=== PATIENT | female | born 1940 | race Caucasian/White ===

== ENCOUNTER 2016-11-23 10:00 | Inpatient (IN) | payer MEDICARE, OTHER ==
[~2016-11-23] VITALS: Ht 144.8 cm; Wt 52.8 kg
[2016-11-23 10:16] VITALS: BP 112/74
[2016-11-23] MEDS ORDERED: METF500T4 PO (10:33)
[2016-11-23] MEDS ORDERED: MULT-717 PO (10:35)
[2016-11-23] MEDS ORDERED: ROSU10TA PO (10:35)
[2016-11-23] MEDS ORDERED: OMEP-110 PO (10:35)
[2016-11-23] MEDS ORDERED: HYDR25TA6 PO (10:35)
[2016-11-23] MEDS ORDERED: CHOL10002 PO (10:35)
[2016-11-24] MEDS ORDERED: THROMBIN 20,000 UNIT VIAL TP ONE (07:53)
[2016-11-24] MEDS ORDERED: BACITRACIN 50,000 UNIT ONE (07:54)
[2016-11-24] MEDS ORDERED: BUPIVACAINE/PF-EPI 0.5% 1:200K ONE (07:54)
[2016-11-24] MEDS ORDERED: VANCOMYCIN 1,000 MG ONE (07:54)
[2016-11-24] MEDS ORDERED: VANCOMYCIN PMX 1GM/200ML 200 ML IV ONE (08:30)
[2016-11-24] MEDS ORDERED: MUPI22OI2 NAS (08:57)
[2016-11-24] MEDS ORDERED: LACTATED RINGERS 1,000 ML IV SCH ×2 (09:00→09:23)
[2016-11-24] MEDS ORDERED: LIDOCAINE 1%, 2ML SQ PRN (09:00)
[2016-11-24] MEDS ORDERED: LIDOCAINE 1%, 2ML ONE (09:06)
[2016-11-24] MEDS ORDERED: ROCURONIUM 10 MG/ML ONE (12:08)
[2016-11-24] MEDS ORDERED: PROPOFOL 10 MG/ML, 50ML ONE (12:08)
[2016-11-24] MEDS ORDERED: ONDANSETRON 2MG/ML, 2ML ONE ×2 (12:08→18:34)
[2016-11-24] MEDS ORDERED: CEFAZOLIN 1,000 MG ONE (12:08)
[2016-11-24] MEDS ORDERED: SUCCINYLCHOLINE 20 MG/ML, 10ML ONE (12:08)
[2016-11-24] MEDS ORDERED: FENTANYL PF 250 MCG/5ML ONE (12:23)
[2016-11-24] MEDS ORDERED: TRANEXAMIC ACID 100 MG/ML, 10ML ONE (12:55)
[2016-11-24] MEDS ORDERED: VANCOMYCIN 500 MG ONE (16:47)
[2016-11-24] MEDS ORDERED: HYDROmorphone 1 MG/ML, 1ML ONE (17:21)
[2016-11-24] MEDS ORDERED: FENTANYL PF 100 MCG/2ML ONE (18:20)
[2016-11-24] MEDS ORDERED: KETOROLAC 30 MG/1 ML ONE (18:20)
[2016-11-24] MEDS ORDERED: OXYcodone 5 MG/5 ML ORAL.SOL UDC ONE (18:21)
[2016-11-24] MEDS ORDERED: EPHEDRINE 50 MG/ML, 1ML IVPush PRN (18:30)
[2016-11-24] MEDS ORDERED: LABETALOL 5MG/ML, 20ML IV PRN ×2 (18:30→20:30)
[2016-11-24] MEDS ORDERED: ONDANSETRON 2MG/ML, 2ML IVPush PRN (18:30)
[2016-11-24] MEDS ORDERED: METOCLOPRAMIDE 5 MG/ML, 2ML IV PRN (18:30)
[2016-11-24] MEDS ORDERED: KETOROLAC 30 MG/1 ML IV PRN ×2 (18:30)
[2016-11-24] MEDS ORDERED: MEPERIDINE/PF 25MG/0.5ML IVPush PRN (18:30)
[2016-11-24] MEDS ORDERED: MIDAZOLAM 1 MG/ML, 2ML IV PRN (18:30)
[2016-11-24] MEDS ORDERED: hydrALAzine 20 MG/ML, 1ML IV PRN (18:30)
[2016-11-24] MEDS ORDERED: OXYcodone 5 MG/5 ML ORAL.SOL UDC PO PRN (18:30)
[2016-11-24] MEDS ORDERED: PROMETHAZINE 25 MG/ML, 1ML IV PRN (18:30)
[2016-11-24] MEDS ORDERED: ACETAMINOPHEN 325 MG TABLET PO PRN ×2 (18:30→20:30)
[2016-11-24] MEDS ORDERED: ALBUTEROL SULFATE 2.5 MG/3 ML NPPB PRN (18:30)
[2016-11-24] MEDS ORDERED: HYDROmorphone 1 MG/ML, 1ML IV PRN (18:30)
[2016-11-24] MEDS: FENTANYL PF 100 MCG/2ML IV PRN ×2 (18:39→19:04)
[2016-11-24 19:44] VITALS: BP 119/70
[2016-11-24] MEDS ORDERED: PHARMACY MAY ADJ FOR RENAL FX MC PRN (20:00)
[2016-11-24] MEDS ORDERED: KETOROLAC 30 MG/1 ML IV ONE (20:30)
[2016-11-24] MEDS ORDERED: ACETAMINOPHEN 650 MG SUPP PR PRN (20:30)
[2016-11-24] MEDS ORDERED: MAGNESIUM HYDROXIDE 8%, 30ML UDC PO PRN (20:30)
[2016-11-24] MEDS ORDERED: DIAZEPAM 5 MG TABLET PO PRN (20:30)
[2016-11-24] MEDS ORDERED: morphine SULFATE 10 MG/ML, 1ML IV PRN (20:30)
[2016-11-24] MEDS ORDERED: PROMETHAZINE 25 MG/ML, 1ML IM PRN (20:30)
[2016-11-24] MEDS ORDERED: OXYcodone IR 5MG TABLET PO PRN (20:30)
[2016-11-24] MEDS ORDERED: BISACODYL 10 MG SUPP PR PRN (20:30)
[2016-11-24] MEDS ORDERED: DIAZEPAM 5 MG/ML, 2ML IV PRN (20:30)
[2016-11-24] MEDS ORDERED: ZOLPIDEM 5MG TABLET PO PRN (21:00)
[2016-11-24] MEDS: ONDANSETRON 2MG/ML, 2ML IV PRN (21:36)
[2016-11-24] MEDS: NS + 20MEQ KCL 1,000 ML IV SCH (22:44)
[2016-11-24] MEDS: INSULIN REGULAR 100 UNITS/ML, 3ML VIAL SQ-INSULIN SCH (22:44)
[2016-11-24] MEDS: metFORMIN 500 MG TABLET PO SCH (22:45)
[2016-11-24 23:05] VITALS: BP 120/60
[2016-11-25] MEDS: CEFAZOLIN PMX 1GM/50ML 50 ML IVPB SCH ×2 (00:44→09:13)
[2016-11-25 03:09] VITALS: BP 115/80
[2016-11-25] MEDS ORDERED: HEPARIN 5,000 UNITS/ML, 1ML SQ SCH (06:00)
[2016-11-25] MEDS: INSULIN REGULAR 100 UNITS/ML, 3ML VIAL SQ-INSULIN SCH ×4 (06:36→20:28)
[2016-11-25 08:09] VITALS: BP 116/67
[2016-11-25] MEDS ORDERED: CHOLECALCIFEROL 1,000 UNIT TABLET PO SCH (09:00)
[2016-11-25] MEDS: ATORVASTATIN 20 MG TABLET PO SCH ×2 (09:00→09:15)
[2016-11-25] MEDS: CRESTOR 10 MG HOMEMEDPO SCH (09:00)
[2016-11-25] MEDS ORDERED: MULTIVITAMIN 1 TABLET PO SCH (09:00)
[2016-11-25] MEDS: metFORMIN 500 MG TABLET PO SCH ×2 (09:14→20:29)
[2016-11-25] MEDS: OMEPRAZOLE 20 MG CAPSULE.DR PO SCH (09:14)
[2016-11-25] MEDS: SENNA/DOCUSATE TABLET PO SCH (09:14)
[2016-11-25] MEDS: HYDROCHLOROTHIAZIDE 25 MG TABLET PO SCH (09:14)
[2016-11-25 14:51] VITALS: BP 93/51
[2016-11-25] MEDS: NS + 20MEQ KCL 1,000 ML IV SCH (17:53)
[2016-11-25 19:02] VITALS: BP 118/64
[2016-11-26 03:48] VITALS: BP 138/74
[2016-11-26] MEDS: ONDANSETRON 2MG/ML, 2ML IV PRN ×2 (04:28→12:50)
[2016-11-26] MEDS: NS + 20MEQ KCL 1,000 ML IV SCH ×2 (06:26→19:00)
[2016-11-26] MEDS: INSULIN REGULAR 100 UNITS/ML, 3ML VIAL SQ-INSULIN SCH ×4 (06:34→21:00)
[2016-11-26 06:47] VITALS: BP 137/82
[2016-11-26] MEDS: metFORMIN 500 MG TABLET PO SCH ×2 (09:00→21:17)
[2016-11-26] MEDS ORDERED: CRESTOR 10 MG HOMEMEDPO SCH (09:00)
[2016-11-26] MEDS: CRESTOR 10 MG HOMEMEDPO SCH (09:00)
[2016-11-26] MEDS: OMEPRAZOLE 20 MG CAPSULE.DR PO SCH (09:00)
[2016-11-26] MEDS: HYDROCHLOROTHIAZIDE 25 MG TABLET PO SCH (09:00)
[2016-11-26] MEDS: SENNA/DOCUSATE TABLET PO SCH (09:00)
[2016-11-26] MEDS: DEXAMETHASONE 4 MG/ML, 1ML IV PRN ×2 (12:50→17:59)
[2016-11-26] MEDS: KETOROLAC 30 MG/1 ML IM PRN (12:53)
[2016-11-26 13:24] VITALS: BP 138/75
[2016-11-26 20:04] VITALS: BP 128/68
[2016-11-27 02:21] VITALS: BP 139/80
[2016-11-27] MEDS: KETOROLAC 30 MG/1 ML IM PRN ×2 (03:39→11:32)
[2016-11-27] MEDS: DEXAMETHASONE 4 MG/ML, 1ML IV PRN (04:23)
[2016-11-27] MEDS: INSULIN REGULAR 100 UNITS/ML, 3ML VIAL SQ-INSULIN SCH ×4 (06:29→21:00)
[2016-11-27 07:10] VITALS: BP 124/64
[2016-11-27] MEDS: NS + 20MEQ KCL 1,000 ML IV SCH ×2 (07:30→19:09)
[2016-11-27] MEDS: metFORMIN 500 MG TABLET PO SCH ×2 (08:58→21:07)
[2016-11-27] MEDS: CRESTOR 10 MG HOMEMEDPO SCH (08:58)
[2016-11-27] MEDS: OMEPRAZOLE 20 MG CAPSULE.DR PO SCH (08:58)
[2016-11-27] MEDS: HYDROCHLOROTHIAZIDE 25 MG TABLET PO SCH (08:58)
[2016-11-27] MEDS: SENNA/DOCUSATE TABLET PO SCH (08:58)
[2016-11-27 12:38] VITALS: BP 124/70
[2016-11-27 19:26] VITALS: BP 133/76
[2016-11-27] MEDS: OXYcodone IR 5MG TABLET PO PRN (19:48)
[2016-11-28 01:15] VITALS: BP 121/73
[2016-11-28] MEDS: DEXAMETHASONE 4 MG/ML, 1ML IV PRN ×2 (04:11→14:04)
[2016-11-28] MEDS: OXYcodone IR 5MG TABLET PO PRN ×4 (04:12→23:27)
[2016-11-28] MEDS: INSULIN REGULAR 100 UNITS/ML, 3ML VIAL SQ-INSULIN SCH ×4 (06:09→21:00)
[2016-11-28] MEDS: NS + 20MEQ KCL 1,000 ML IV SCH ×2 (06:09→19:12)
[2016-11-28 07:34] VITALS: BP 117/64
[2016-11-28] MEDS: OMEPRAZOLE 20 MG CAPSULE.DR PO SCH (07:35)
[2016-11-28] MEDS: CRESTOR 10 MG HOMEMEDPO SCH (07:35)
[2016-11-28] MEDS: SENNA/DOCUSATE TABLET PO SCH (07:35)
[2016-11-28] MEDS: HYDROCHLOROTHIAZIDE 25 MG TABLET PO SCH (07:36)
[2016-11-28] MEDS: metFORMIN 500 MG TABLET PO SCH ×2 (07:36→21:15)
[2016-11-28 12:49] VITALS: BP 129/74
[2016-11-28 19:48] VITALS: BP 147/70
[2016-11-29 01:36] VITALS: BP 138/71
[2016-11-29] MEDS: OXYcodone IR 5MG TABLET PO PRN ×4 (04:17→21:26)
[2016-11-29] MEDS: INSULIN REGULAR 100 UNITS/ML, 3ML VIAL SQ-INSULIN SCH ×4 (06:20→23:07)
[2016-11-29 08:10] VITALS: BP 126/73
[2016-11-29] MEDS: SENNA/DOCUSATE TABLET PO SCH (08:59)
[2016-11-29] MEDS: NS + 20MEQ KCL 1,000 ML IV SCH ×2 (08:59→22:00)
[2016-11-29] MEDS: metFORMIN 500 MG TABLET PO SCH ×2 (08:59→23:07)
[2016-11-29] MEDS: OMEPRAZOLE 20 MG CAPSULE.DR PO SCH (08:59)
[2016-11-29] MEDS: HYDROCHLOROTHIAZIDE 25 MG TABLET PO SCH (08:59)
[2016-11-29] MEDS: CRESTOR 10 MG HOMEMEDPO SCH (09:00)
[2016-11-29 13:42] VITALS: BP 119/65
[2016-11-29 19:25] VITALS: BP 112/64
[2016-11-30 03:20] VITALS: BP 120/68
[2016-11-30] MEDS: OXYcodone IR 5MG TABLET PO PRN ×2 (05:33→08:16)
[2016-11-30 07:14] VITALS: BP 105/63
[2016-11-30] MEDS: INSULIN REGULAR 100 UNITS/ML, 3ML VIAL SQ-INSULIN SCH (08:16)
[2016-11-30] MEDS: metFORMIN 500 MG TABLET PO SCH (08:17)
[2016-11-30] MEDS: SENNA/DOCUSATE TABLET PO SCH (08:17)
[2016-11-30] MEDS: OMEPRAZOLE 20 MG CAPSULE.DR PO SCH (08:17)
[2016-11-30] MEDS: HYDROCHLOROTHIAZIDE 25 MG TABLET PO SCH (08:17)
[2016-11-30] MEDS: CRESTOR 10 MG HOMEMEDPO SCH (08:17)
[2016-11-30] MEDS ORDERED: INSU100V5 SQ-INSULIN (10:30)
[2016-11-30] MEDS: NS + 20MEQ KCL 1,000 ML IV SCH (10:30)
[2016-11-30] MEDS ORDERED: SENN-31 PO (10:31)
[2016-11-30] MEDS ORDERED: ACET-1757 PO (10:32)
[2016-11-30] MEDS ORDERED: ACET650S12 PR (10:32)
[2016-11-30] MEDS ORDERED: ALPR0.254 PO (10:33)
[2016-11-30] MEDS ORDERED: BISA10SU2 PR (10:33)
[2016-11-30] MEDS ORDERED: DIAZ5TAB4 PO (10:34)
[2016-11-30] MEDS ORDERED: MAGN400O4 PO (10:36)
[2016-11-30] MEDS ORDERED: ONDA4SOL IV (10:37)
[2016-11-30] MEDS ORDERED: OXYC5CAP4 PO (10:38)
[2016-11-30] MEDS ORDERED: OXYC5TAB3 PO (10:38)
[2016-11-30] MEDS ORDERED: ZOLP-413 PO (10:39)
[2016-11-30] MEDS ORDERED: MORP15TA3 PO (10:40)
[2016-11-30 10:47] VITALS: BP 122/76
== END 2016-11-30 11:00 | DRG 457 ==
LOC: ORIP 11-24 07:31 → EDSTATUS 11-24 10:30 → 4NOR 11-24 19:38
PROVIDERS: ADMIT Orthopaedic Surgery Orthopaedic Surgery of the Spine; ATTEND Orthopaedic Surgery Orthopaedic Surgery of the Spine
PROC: 0SP00AZ Removal of Interbody Fusion Device from Lumbar Vertebral Joint, Open Approach (ICD-10-PCS; principal; 2016-11-29)
PROC: 0RGA071 Fusion of Thoracolumbar Vertebral Joint with Autologous Tissue Substitute, Posterior Approach, Posterior Column, Open Approach (ICD-10-PCS; 2016-11-29)
PROC: 0RG7071 Fusion of 2 to 7 Thoracic Vertebral Joints with Autologous Tissue Substitute, Posterior Approach, Posterior Column, Open Approach (ICD-10-PCS; 2016-11-29)
PROC: 0SG1071 Fusion of 2 or more Lumbar Vertebral Joints with Autologous Tissue Substitute, Posterior Approach, Posterior Column, Open Approach (ICD-10-PCS; 2016-11-29)
PROC: 0SG3071 Fusion of Lumbosacral Joint with Autologous Tissue Substitute, Posterior Approach, Posterior Column, Open Approach (ICD-10-PCS; 2016-11-29)
PROC: 0SP30AZ Removal of Interbody Fusion Device from Lumbosacral Joint, Open Approach (ICD-10-PCS; 2016-11-29)
PROC: 07DR3ZZ Extraction of Iliac Bone Marrow, Percutaneous Approach (ICD-10-PCS; 2016-11-29)
PROC: 4A11X4G Monitoring of Peripheral Nervous Electrical Activity, Intraoperative, External Approach (ICD-10-PCS; 2016-11-29)
DX: M48.05 Spinal stenosis, thoracolumbar region (principal); M48.56XA Collapsed vertebra, not elsewhere classified, lumbar region, initial encounter for fracture; K59.00 Constipation, unspecified; M54.16 Radiculopathy, lumbar region; M81.0 Age-related osteoporosis without current pathological fracture; E11.9 Type 2 diabetes mellitus without complications; K21.9 Gastro-esophageal reflux disease without esophagitis; G89.29 Other chronic pain; Z88.2 Allergy status to sulfonamides; Z88.0 Allergy status to penicillin; Z88.8 Allergy status to other drugs, medicaments and biological substances; M40.205 Unspecified kyphosis, thoracolumbar region
CPT/HCPCS: 36415; 72072; 72100; 82330; 82803; 82947; 82962; 84132; 84295; 85014; 85025; 85651; 86850; 86900; C1713; J0690; J1100; J1170; J1885; J2270; J2405; J2704; J3010; J3370; J3480; J3490; C1760; C1762; C1763; C9362; J0330; J7120

== ENCOUNTER 2016-12-12 19:54 | Inpatient (IN) | payer MEDICARE, OTHER ==
[~2016-12-12] VITALS: Ht 144.8 cm; Wt 51.6 kg
[~2016-12-12 19:54] MED LIST: ACET-1757 PO; ACET650S12 PR; ALPR0.254 PO; BISA10SU2 PR; CHOL10002 PO; DIAZ5TAB4 PO; HYDR25TA6 PO; INSU100V5 SQ-INSULIN; MAGN400O4 PO; METF500T4 PO; MORP15TA3 PO; MULT-717 PO; MUPI22OI2 NAS; OMEP-110 PO; ONDA4SOL IV; OXYC5CAP4 PO; OXYC5TAB3 PO; ROSU10TA PO; SENN-31 PO; ZOLP-413 PO
[2016-12-12] MEDS ORDERED: SODIUM CHLORIDE 0.9% 1,000 ML IV ONE (20:01)
[2016-12-12] MEDS ORDERED: SODIUM CHLORIDE FLUSH 10ML SYR IVF ONE (20:30)
[2016-12-12] MEDS ORDERED: SODIUM CHLORIDE 0.9% 1,000ML IVBOLUS ONE (20:30)
[2016-12-12 20:46] LABS: HEMATOCRIT 37.3 % (34.6-47.8); HEMOGLOBIN 11.7 g/dL (11.7-16.4); WHITE BLOOD COUNT 12.3 x10^3/uL (3.4-10)
[2016-12-12 20:57] LABS: ASPARTATE AMINO TRANSFERASE 23 U/L (15-37); BLOOD UREA NITROGEN 14 mg/dL (7-18)
[2016-12-12] MEDS ORDERED: POTASSIUM CHLORIDE 40 MEQ in SODIUM CHLORIDE 0.9% 500 ML IV ONE (21:00)
[2016-12-12] MEDS ORDERED: POTASSIUM CHLORIDE 10% 40 MEQ/30 ML UDC PO ONE (21:00)
[2016-12-12] MEDS ORDERED: ENOX40SY4 SQ (21:35)
[2016-12-12] MEDS ORDERED: HYDR12.53 PO (21:36)
[2016-12-12] MEDS ORDERED: OXYC10TA32 PO (21:48)
[2016-12-12] MEDS ORDERED: DEXT1TAB17 PO (21:48)
[2016-12-12] MEDS ORDERED: DOCU-131 PO (21:48)
[2016-12-12] MEDS ORDERED: PROM25SU34 RC (21:48)
[2016-12-12] MEDS ORDERED: METH12DI INJ (21:48)
[2016-12-12] MEDS ORDERED: ONDA4TAB10 PO (21:48)
[2016-12-12 22:29] VITALS: BP 110/67
[2016-12-12] MEDS ORDERED: ACETAMINOPHEN 325 MG TABLET PO PRN (22:30)
[2016-12-12] MEDS ORDERED: SODIUM CITRATE PO PRN (22:30)
[2016-12-12] MEDS ORDERED: TEMPLATE NON-FORMULARY MED. (Rosuvastatin Calcium** (Crestor**) 10 MG) PO SCH (22:30)
[2016-12-12] MEDS ORDERED: DIAZEPAM 5 MG TABLET PO PRN (22:30)
[2016-12-12] MEDS ORDERED: [UNRECOGNIZED DRUG - OTHER] PO PRN (22:30)
[2016-12-12] MEDS ORDERED: DEXTROSE PO PRN (22:30)
[2016-12-12] MEDS ORDERED: PROMETHAZINE 12.5 MG SUPP PR PRN (23:00)
[2016-12-13] MEDS ORDERED: ROSUVASTATIN CALCIUM PO SCH (00:49)
[2016-12-13 01:09] VITALS: BP 98/61
[2016-12-13] MEDS ORDERED: POLYETHYLENE GLYCOL 17 GM PACKET PO PRN (01:30)
[2016-12-13] MEDS ORDERED: ENALAPRILAT 1.25 MG/ML, 2ML IVPush PRN (01:30)
[2016-12-13] MEDS ORDERED: BISACODYL 10 MG SUPP PR PRN (01:30)
[2016-12-13] MEDS: NS + 20MEQ KCL 1,000 ML IV SCH ×2 (01:44→13:56)
[2016-12-13] MEDS: HEPARIN 5,000 UNITS/ML, 1ML SQ SCH ×3 (01:46→21:03)
[2016-12-13 05:50] VITALS: BP 105/54
[2016-12-13 07:44] VITALS: BP 98/60
[2016-12-13] MEDS: OMEPRAZOLE 20 MG CAPSULE.DR PO SCH (09:00)
[2016-12-13] MEDS: HYDROCHLOROTHIAZIDE 25 MG TABLET PO SCH (09:00)
[2016-12-13] MEDS: OxyconTIN ER 10 MG TAB.ER PO SCH ×2 (09:00→21:03)
[2016-12-13] MEDS: SENNA/DOCUSATE TABLET PO SCH ×2 (09:00→21:03)
[2016-12-13] MEDS: MULTIVITAMINS/MINERALS TABLET PO SCH (09:00)
[2016-12-13] MEDS: HYDROCHLOROTHIAZIDE 12.5 MG CAPSULE PO SCH (09:00)
[2016-12-13] MEDS: CHOLECALCIFEROL 1,000 UNIT TABLET PO SCH (09:00)
[2016-12-13] MEDS: PANTOPRAZOLE 40 MG IV IVPush SCH (10:03)
[2016-12-13 11:45] LABS: BLOOD UREA NITROGEN 10 mg/dL (7-18)
[2016-12-13 15:39] VITALS: BP 119/68
[2016-12-13 19:54] VITALS: BP 114/62
[2016-12-13] MEDS: INSULIN ASPART 100 UNITS/ML, PEN SQ-INSULIN SCH (21:00)
[2016-12-14] MEDS: NS + 20MEQ KCL 1,000 ML IV SCH ×2 (00:33→10:56)
[2016-12-14 01:32] VITALS: BP 108/57
[2016-12-14] MEDS: HEPARIN 5,000 UNITS/ML, 1ML SQ SCH ×3 (05:20→20:09)
[2016-12-14 05:33] LABS: HEMOGLOBIN 9.7 g/dL (11.7-16.4); WHITE BLOOD COUNT 6.7 x10^3/uL (3.4-10)
[2016-12-14 05:41] LABS: BLOOD UREA NITROGEN 5 mg/dL (7-18)
[2016-12-14] MEDS: INSULIN ASPART 100 UNITS/ML, PEN SQ-INSULIN SCH ×4 (07:29→20:02)
[2016-12-14 08:00] VITALS: BP 121/64
[2016-12-14 08:02] VITALS: BP 119/66
[2016-12-14] MEDS: MULTIVITAMINS/MINERALS TABLET PO SCH (08:50)
[2016-12-14] MEDS: HYDROCHLOROTHIAZIDE 12.5 MG CAPSULE PO SCH (08:50)
[2016-12-14] MEDS: OMEPRAZOLE 20 MG CAPSULE.DR PO SCH (08:50)
[2016-12-14] MEDS: OxyconTIN ER 10 MG TAB.ER PO SCH ×2 (08:50→20:08)
[2016-12-14] MEDS: PANTOPRAZOLE 40 MG IV IVPush SCH (08:50)
[2016-12-14] MEDS: CHOLECALCIFEROL 1,000 UNIT TABLET PO SCH (08:50)
[2016-12-14] MEDS: SENNA/DOCUSATE TABLET PO SCH (08:50)
[2016-12-14] MEDS: HYDROCHLOROTHIAZIDE 25 MG TABLET PO SCH (08:53)
[2016-12-14] MEDS ORDERED: METHYLNALTREXONE 12 MG/0.6 ML SQ SCH (09:00)
[2016-12-14] MEDS ORDERED: CALCIUM GLUCONATE 4.6 MEQ in SODIUM CHLORIDE 0.9% 50 ML IV ONE (11:00)
[2016-12-14 13:25] VITALS: BP 120/80
[2016-12-14] MEDS ORDERED: MAGNESIUM SULFATE PMX 4GM/100M 100 ML IV ONE (14:00)
[2016-12-14] MEDS ORDERED: METHOCARBAMOL 500 MG TABLET PO PRN (14:00)
[2016-12-14 19:24] VITALS: BP 110/63
[2016-12-15] VITALS: BP 118/69
[2016-12-15] MEDS: NS + 20MEQ KCL 1,000 ML IV SCH ×2 (01:31→12:48)
[2016-12-15] MEDS: OXYcodone IR 5MG TABLET PO PRN ×2 (04:44→16:30)
[2016-12-15] MEDS: HEPARIN 5,000 UNITS/ML, 1ML SQ SCH ×3 (04:45→21:21)
[2016-12-15 06:00] LABS: HEMATOCRIT 33.3 % (34.6-47.8); HEMOGLOBIN 10.9 g/dL (11.7-16.4); WHITE BLOOD COUNT 6.4 x10^3/uL (3.4-10)
[2016-12-15 06:16] LABS: BLOOD UREA NITROGEN 3 mg/dL (7-18)
[2016-12-15 07:00] VITALS: BP 113/60
[2016-12-15] MEDS: INSULIN ASPART 100 UNITS/ML, PEN SQ-INSULIN SCH ×4 (07:00→21:00)
[2016-12-15] MEDS: OxyconTIN ER 10 MG TAB.ER PO SCH ×2 (08:12→21:21)
[2016-12-15] MEDS: PANTOPRAZOLE 40 MG IV IVPush SCH (08:13)
[2016-12-15] MEDS: MULTIVITAMINS/MINERALS TABLET PO SCH (08:13)
[2016-12-15] MEDS: OMEPRAZOLE 20 MG CAPSULE.DR PO SCH (08:13)
[2016-12-15] MEDS: SENNA/DOCUSATE TABLET PO SCH (08:13)
[2016-12-15] MEDS: HYDROCHLOROTHIAZIDE 25 MG TABLET PO SCH (08:13)
[2016-12-15] MEDS: CHOLECALCIFEROL 1,000 UNIT TABLET PO SCH (08:13)
[2016-12-15] MEDS ORDERED: POTASSIUM PHOSPHATE 22 MEQ in SODIUM CHLORIDE 0.9% 500 ML IV ONE (11:00)
[2016-12-15] MEDS ORDERED: POTASSIUM CHLORIDE 40 MEQ in SODIUM CHLORIDE 0.9% 500 ML IV ONE (12:00)
[2016-12-15 12:45] VITALS: BP 103/58
[2016-12-15] MEDS: POTASSIUM CHLORIDE 20 MEQ TAB.ER.PRT PO SCH (12:48)
[2016-12-15] MEDS: ONDANSETRON 2MG/ML, 2ML IVPush PRN (15:59)
[2016-12-15 19:29] VITALS: BP 115/72
[2016-12-15] MEDS ORDERED: SIMETHICONE 80 MG CHEW TAB PO PRN (21:00)
[2016-12-16 00:18] VITALS: BP 100/61
[2016-12-16] MEDS: ONDANSETRON 2MG/ML, 2ML IVPush PRN ×2 (04:33→13:59)
[2016-12-16] MEDS: HEPARIN 5,000 UNITS/ML, 1ML SQ SCH ×3 (04:33→21:09)
[2016-12-16 05:57] LABS: HEMATOCRIT 31.5 % (34.6-47.8); HEMOGLOBIN 10.1 g/dL (11.7-16.4); WHITE BLOOD COUNT 5.8 x10^3/uL (3.4-10)
[2016-12-16 06:16] LABS: BLOOD UREA NITROGEN 3 mg/dL (7-18)
[2016-12-16] MEDS: INSULIN ASPART 100 UNITS/ML, PEN SQ-INSULIN SCH ×4 (07:00→21:00)
[2016-12-16 08:00] VITALS: BP 125/70
[2016-12-16] MEDS: SENNA/DOCUSATE TABLET PO SCH (09:00)
[2016-12-16] MEDS ORDERED: MAGNESIUM SULFATE PMX 2GM/50ML 50 ML IV ONE (09:00)
[2016-12-16] MEDS ORDERED: METHYLNALTREXONE 12 MG/0.6 ML SQ SCH (09:00)
[2016-12-16] MEDS: OxyconTIN ER 10 MG TAB.ER PO SCH ×2 (09:18→21:08)
[2016-12-16] MEDS: MULTIVITAMINS/MINERALS TABLET PO SCH (09:19)
[2016-12-16] MEDS: CHOLECALCIFEROL 1,000 UNIT TABLET PO SCH (09:19)
[2016-12-16] MEDS: OMEPRAZOLE 20 MG CAPSULE.DR PO SCH (09:19)
[2016-12-16] MEDS: POTASSIUM CHLORIDE 20 MEQ TAB.ER.PRT PO SCH (09:19)
[2016-12-16] MEDS: HYDROCHLOROTHIAZIDE 25 MG TABLET PO SCH (09:19)
[2016-12-16] MEDS: PANTOPRAZOLE 40 MG IV IVPush SCH (09:19)
[2016-12-16] MEDS ORDERED: BISACODYL 5 MG EC TABLET PO SCH (12:30)
[2016-12-16] MEDS: BISACODYL 5 MG EC TABLET PO SCH (13:59)
[2016-12-16 14:00] VITALS: BP 92/56
[2016-12-16 20:00] VITALS: BP 97/61
[2016-12-17 01:41] VITALS: BP 104/67
[2016-12-17] MEDS: HEPARIN 5,000 UNITS/ML, 1ML SQ SCH ×3 (04:50→20:43)
[2016-12-17 06:00] LABS: BLOOD UREA NITROGEN 3 mg/dL (7-18)
[2016-12-17] MEDS: INSULIN ASPART 100 UNITS/ML, PEN SQ-INSULIN SCH ×4 (07:00→20:39)
[2016-12-17 07:05] VITALS: BP 101/59
[2016-12-17] MEDS: PANTOPRAZOLE 40 MG IV IVPush SCH (08:19)
[2016-12-17] MEDS: OxyconTIN ER 10 MG TAB.ER PO SCH ×2 (08:20→21:00)
[2016-12-17] MEDS: MULTIVITAMINS/MINERALS TABLET PO SCH (08:20)
[2016-12-17] MEDS: POTASSIUM CHLORIDE 20 MEQ TAB.ER.PRT PO SCH (08:20)
[2016-12-17] MEDS: SENNA/DOCUSATE TABLET PO SCH (08:20)
[2016-12-17] MEDS: OMEPRAZOLE 20 MG CAPSULE.DR PO SCH (08:20)
[2016-12-17] MEDS: HYDROCHLOROTHIAZIDE 25 MG TABLET PO SCH (08:20)
[2016-12-17] MEDS: CHOLECALCIFEROL 1,000 UNIT TABLET PO SCH (08:20)
[2016-12-17] MEDS: BISACODYL 5 MG EC TABLET PO SCH (08:22)
[2016-12-17] MEDS: ONDANSETRON 2MG/ML, 2ML IVPush PRN (08:27)
[2016-12-17] MEDS ORDERED: MAGNESIUM SULFATE PMX 4GM/100M 100 ML IV ONE (11:00)
[2016-12-17] MEDS ORDERED: MECLIZINE CHEWABLE 25 MG TAB PO PRN (12:30)
[2016-12-17] MEDS ORDERED: PROMETHAZINE 25 MG/ML, 1ML IM PRN ×2 (12:30→19:30)
[2016-12-17] MEDS ORDERED: METOCLOPRAMIDE 5 MG/ML, 2ML IVPush PRN (12:30)
[2016-12-17 13:20] VITALS: BP 120/63
[2016-12-17] MEDS ORDERED: DIAZEPAM 5 MG TABLET PO PRN (19:30)
[2016-12-17] MEDS ORDERED: POLYETHYLENE GLYCOL 17 GM PACKET PO PRN (19:30)
[2016-12-17] MEDS ORDERED: ENALAPRILAT 1.25 MG/ML, 2ML IVPush PRN (19:30)
[2016-12-17] MEDS ORDERED: BISACODYL 10 MG SUPP PR PRN (19:30)
[2016-12-17] MEDS ORDERED: ACETAMINOPHEN 325 MG TABLET PO PRN (19:30)
[2016-12-17 19:58] VITALS: BP 122/76
[2016-12-17 19:59] VITALS: BP 101/65
[2016-12-18 02:26] VITALS: BP 94/56
[2016-12-18] MEDS: HEPARIN 5,000 UNITS/ML, 1ML SQ SCH ×3 (05:20→22:05)
[2016-12-18 06:24] LABS: BLOOD UREA NITROGEN 5 mg/dL (7-18)
[2016-12-18] MEDS: INSULIN ASPART 100 UNITS/ML, PEN SQ-INSULIN SCH ×4 (07:00→21:00)
[2016-12-18 07:25] VITALS: BP 122/69
[2016-12-18] MEDS: SENNA/DOCUSATE TABLET PO SCH ×2 (09:00→10:13)
[2016-12-18] MEDS: OMEPRAZOLE 20 MG CAPSULE.DR PO SCH ×2 (09:00→10:13)
[2016-12-18] MEDS: MULTIVITAMINS/MINERALS TABLET PO SCH ×2 (09:00→10:13)
[2016-12-18] MEDS ORDERED: BISACODYL 5 MG EC TABLET PO SCH ×2 (09:00)
[2016-12-18] MEDS ORDERED: POTASSIUM CHLORIDE 40 MEQ in SODIUM CHLORIDE 0.9% 500 ML IV ONE (10:00)
[2016-12-18] MEDS: PANTOPRAZOLE 40 MG IV IVPush SCH (10:07)
[2016-12-18] MEDS: CHOLECALCIFEROL 1,000 UNIT TABLET PO SCH (10:08)
[2016-12-18] MEDS: HYDROCHLOROTHIAZIDE 25 MG TABLET PO SCH (10:14)
[2016-12-18] MEDS: OxyconTIN ER 10 MG TAB.ER PO SCH ×2 (10:14→22:05)
[2016-12-18 12:58] VITALS: BP 108/67
[2016-12-18] MEDS: OXYcodone IR 5MG TABLET PO PRN (18:00)
[2016-12-18 20:27] VITALS: BP 101/63
[2016-12-19 01:41] VITALS: BP 94/56
[2016-12-19] MEDS: OXYcodone IR 5MG TABLET PO PRN ×2 (05:05→16:32)
[2016-12-19] MEDS: HEPARIN 5,000 UNITS/ML, 1ML SQ SCH ×2 (05:05→12:39)
[2016-12-19 05:52] LABS: BLOOD UREA NITROGEN 7 mg/dL (7-18)
[2016-12-19] MEDS: INSULIN ASPART 100 UNITS/ML, PEN SQ-INSULIN SCH ×3 (07:00→16:00)
[2016-12-19] MEDS: PANTOPRAZOLE 40 MG IV IVPush SCH (08:11)
[2016-12-19 08:41] VITALS: BP 91/53
[2016-12-19] MEDS: HYDROCHLOROTHIAZIDE 25 MG TABLET PO SCH (09:00)
[2016-12-19] MEDS: SENNA/DOCUSATE TABLET PO SCH ×2 (09:00→09:36)
[2016-12-19] MEDS: OMEPRAZOLE 20 MG CAPSULE.DR PO SCH (09:37)
[2016-12-19] MEDS: MULTIVITAMINS/MINERALS TABLET PO SCH (09:37)
[2016-12-19] MEDS: OxyconTIN ER 10 MG TAB.ER PO SCH (09:37)
[2016-12-19] MEDS: CHOLECALCIFEROL 1,000 UNIT TABLET PO SCH (09:37)
[2016-12-19 14:28] VITALS: BP 92/51
[2016-12-19] MEDS ORDERED: MECL-85 PO (17:52)
[2016-12-19] MEDS ORDERED: BISA10SU65 PR (17:52)
[2016-12-19] MEDS ORDERED: MAGN400T26 PO (17:54)
[2016-12-19] MEDS ORDERED: MAGNESIUM OXIDE 400 MG TABLET PO SCH (17:55)
[2016-12-19] MEDS ORDERED: MAGNESIUM SULFATE PMX 4GM/100M 100 ML IV ONE (18:00)
[2016-12-19] MEDS ORDERED: HEPARIN 5,000 UNITS/ML, 1ML SQ SCH (22:00)
[2016-12-20] MEDS ORDERED: SENNA/DOCUSATE TABLET PO SCH (09:00)
== END 2016-12-19 19:27 | DRG 388 ==
LOC: ED 21:10 → EDIP 21:17 → ED 21:23 → 4EST 22:21
PROVIDERS: ADMIT Internal Medicine; ATTEND Internal Medicine
PROC: 0T9B70Z Drainage of Bladder with Drainage Device, Via Natural or Artificial Opening (ICD-10-PCS; principal; 2016-12-12)
DX: K56.7 Ileus, unspecified (principal); E43 Unspecified severe protein-calorie malnutrition; E11.43 Type 2 diabetes mellitus with diabetic autonomic (poly)neuropathy; D68.59 Other primary thrombophilia; K31.84 Gastroparesis; E87.1 Hypo-osmolality and hyponatremia; E83.42 Hypomagnesemia; E11.9 Type 2 diabetes mellitus without complications; E86.0 Dehydration; K52.9 Noninfective gastroenteritis and colitis, unspecified; E87.6 Hypokalemia; E78.5 Hyperlipidemia, unspecified; F41.9 Anxiety disorder, unspecified; I10 Essential (primary) hypertension; K21.9 Gastro-esophageal reflux disease without esophagitis; M40.209 Unspecified kyphosis, site unspecified; G89.29 Other chronic pain; T40.605A Adverse effect of unspecified narcotics, initial encounter; Y92.89 Other specified places as the place of occurrence of the external cause; Z88.0 Allergy status to penicillin; Z98.1 Arthrodesis status; Z88.2 Allergy status to sulfonamides; Z88.8 Allergy status to other drugs, medicaments and biological substances; K59.03 Drug induced constipation
CPT/HCPCS: 36415; 74000; 74022; 80048; 80053; 81001; 82306; 82330; 82607; 82962; 83605; 83690; 83735; 84100; 84439; 84443; 85025; 85610; 93005; 96361; 96365; J0610; J1644; J1815; J2405; J3480; C9113; J2765; J3475; J7030; J7040